=== PATIENT | female | born 1985 | race Caucasian/White ===

== ENCOUNTER 2017-03-07 05:37 | Emergency (ER) | payer MEDICAID ==
[~2017-03-07] VITALS: Ht 149.9 cm; Wt 105.0 kg
[2017-03-07 05:42] VITALS: BP 157/102
== END 2017-03-07 11:26 | disposition home or self-care (01) ==
LOC: ER 05:59
DX: J06.9 Acute upper respiratory infection, unspecified (principal); J45.909 Unspecified asthma, uncomplicated
CPT/HCPCS: 99281